=== PATIENT | male | born 1970 | race Caucasian/White ===

== ENCOUNTER 2021-02-22 15:25 | Outpatient (CLI) | payer BC ==
[2021-04-13] MEDS ORDERED: GABA100C PO (08:00)
[2021-04-13] MEDS ORDERED: MELA10TA PO (08:00)
[2021-04-13] MEDS ORDERED: IBUP-1222 PO (08:00)
== END 2021-02-22 23:59 | disposition home or self-care (01) ==
LOC: CFH 15:25
PROVIDERS: ATTEND Physician Assistant Medical
DX: K40.90 Unilateral inguinal hernia, without obstruction or gangrene, not specified as recurrent (principal)
CPT/HCPCS: 76857

== ENCOUNTER 2021-04-16 08:30 | Day surgery (SDC) | payer BC ==
[2021-04-13 08:27] LABS: BASOPHILS % (AUTO) 1 % (0-1); EOSINOPHILS % (AUTO) 1 % (1-7); LYMPHOCYTES % (AUTO) 16 % (22-44); MEAN CORPUSCULAR HEMOGLOBIN 28.9 pg (27.5-34.5); MEAN CORPUSCULAR HGB CONC 33.8 g/dL (33.2-36.2); MEAN PLATELET VOLUME 6.7 fL (7.4-10.4); MONOCYTES % (AUTO) 8 % (2-9); NEUTROPHILS % (AUTO) 74 % (42-75); PLATELET COUNT 547 x10^3/uL (130-400); RED BLOOD COUNT 5.06 x10^6/uL (4.38-5.82); RED CELL DISTRIBUTION WIDTH 13.4 % (9.4-14.8)
[2021-04-13 08:35] LABS: ANION GAP 7 mmol/L (5-15); CALCIUM 9.9 mg/dL (8.5-10.1); CHLORIDE 107 mmol/L (98-107); CREATININE 0.94 mg/dL (0.7-1.3)
[~2021-04-16] VITALS: Ht 182.9 cm; Wt 93.9 kg
[~2021-04-16 08:30] MED LIST: GABA100C PO; IBUP-1222 PO; MELA10TA PO
[2021-04-16] MEDS ORDERED: CHLORHEXIDINE 15 ML UDC ONE (09:19)
[2021-04-16] MEDS ORDERED: FENTANYL PF 100 MCG/2ML IV PRN (09:30)
[2021-04-16] MEDS ORDERED: HALOPERIDOL 5 MG/ML IV PRN (09:30)
[2021-04-16] MEDS ORDERED: LABETALOL 5MG/ML, 20ML IV PRN (09:30)
[2021-04-16] MEDS ORDERED: OXYcodone 5 MG/5 ML ORAL.SOL UDC PO PRN (09:30)
[2021-04-16] MEDS ORDERED: LACTATED RINGERS 1,000 ML IV SCH (09:30)
[2021-04-16] MEDS ORDERED: DIPHENHYDRAMINE 50 MG/ML, 1ML IVPush PRN (09:30)
[2021-04-16] MEDS ORDERED: MEPERIDINE/PF 25MG/0.5ML IVPush PRN (09:30)
[2021-04-16] MEDS ORDERED: HYDROmorphone 1 MG/ML, 1ML INJ IVPush PRN (09:30)
[2021-04-16] MEDS ORDERED: CHLORHEXIDINE 15 ML UDC PO ONE (09:30)
[2021-04-16] MEDS ORDERED: hydrALAzine 20 MG/ML, 1ML IV PRN (09:30)
[2021-04-16] MEDS ORDERED: ACETAMINOPHEN 325 MG TABLET PO PRN (09:30)
[2021-04-16] MEDS ORDERED: PROMETHAZINE 25 MG/ML, 1ML IVPush PRN (09:30)
[2021-04-16] MEDS ORDERED: FENTANYL PF 250 MCG/5ML ONE (09:34)
[2021-04-16] MEDS ORDERED: MIDAZOLAM 1 MG/ML, 2ML ONE (09:34)
[2021-04-16 09:44] VITALS: BP 126/69
[2021-04-16] MEDS ORDERED: BUPIVACAINE/PF 0.5% ONE ×2 (09:53→09:58)
[2021-04-16] MEDS ORDERED: EPINEPHRINE 1 MG/ML, 1ML ONE (09:53)
[2021-04-16] MEDS ORDERED: OXYC5TAB2 PO (10:35)
[2021-04-16] MEDS ORDERED: HYDROmorphone 1 MG/ML, 1ML INJ ONE (11:34)
[2021-04-16] MEDS ORDERED: CEFAZOLIN 1,000 MG ONE (12:11)
[2021-04-16] MEDS ORDERED: SUCCINYLCHOLINE 20 MG/ML, 10ML ONE (12:11)
[2021-04-16] MEDS ORDERED: GLYCOPYRROLATE 0.2MG/1ML, 5ML ONE (12:11)
[2021-04-16] MEDS ORDERED: DEXAMETHASONE 4 MG/ML, 1ML ONE (12:11)
[2021-04-16] MEDS ORDERED: ROCURONIUM 10MG/ML,5ML ONE (12:11)
[2021-04-16] MEDS ORDERED: ONDANSETRON 2MG/ML, 2ML ONE (12:11)
[2021-04-16] MEDS ORDERED: NEOSTIGMINE 1 MG/ML, 10ML ONE (12:11)
[2021-04-16] MEDS ORDERED: PROPOFOL 10 MG/ML, 20ML ONE (12:11)
== END 2021-04-16 16:41 | disposition home or self-care (01) ==
LOC: OUT 08:30 → EDSTATUS 11:00 → OUT 16:41
PROVIDERS: ATTEND Surgery
DX: K40.20 Bilateral inguinal hernia, without obstruction or gangrene, not specified as recurrent (principal); D17.6 Benign lipomatous neoplasm of spermatic cord; F12.90 Cannabis use, unspecified, uncomplicated; F17.210 Nicotine dependence, cigarettes, uncomplicated; Z88.8 Allergy status to other drugs, medicaments and biological substances; Z91.030 Bee allergy status; Z79.899 Other long term (current) drug therapy
CPT/HCPCS: 36415; 49650; 80048; 85025; C1781; J0171; J0330; J0690; J1100; J1170; J2250; J2405; J2704; J2710; J3010; J7120; S2900

== ENCOUNTER 2021-04-29 08:12 | Outpatient (CLI) | payer BC ==
[~2021-04-29 08:12] MED LIST changes: +OXYC5TAB2 PO
== END 2021-04-29 23:59 | disposition home or self-care (01) ==
LOC: RAD 08:12
PROVIDERS: ATTEND Internal Medicine
DX: Z02.9 Encounter for administrative examinations, unspecified (principal)

== ENCOUNTER 2021-05-05 12:06 | Day surgery (SDC) | payer BC ==
[~2021-05-05] VITALS: Ht 182.9 cm; Wt 82.0 kg
[2021-05-05] MEDS ORDERED: SODIUM CHLORIDE 0.9% 1,000 ML IV SCH (13:00)
[2021-05-05] MEDS ORDERED: TRAM50TA2 PO (13:04)
[2021-05-05] MEDS ORDERED: FENTANYL PF 100 MCG/2ML ONE (14:36)
[2021-05-05] MEDS ORDERED: MIDAZOLAM 1 MG/ML, 5ML ONE (14:36)
[2021-05-05] MEDS ORDERED: FLUMAZENIL 0.1 MG/1 ML, 5ML ONE (14:36)
[2021-05-05] MEDS ORDERED: NALOXONE 1 MG/ML, 2ML ONE (14:36)
[2021-05-05] MEDS ORDERED: GADOTERATE 10 MMOL/20ML SYR ONE (16:10)
[2021-05-05] MEDS ORDERED: OMNIPAQUE 350 MG/ML, 100ML BOTTLE ONE (16:54)
== END 2021-05-05 17:42 | disposition home or self-care (01) ==
LOC: OUT 12:06 → EDSTATUS 14:00 → OUT 17:42
PROVIDERS: ATTEND Internal Medicine
DX: R10.32 Left lower quadrant pain (principal); E27.49 Other adrenocortical insufficiency; K76.9 Liver disease, unspecified; J98.11 Atelectasis; M48.07 Spinal stenosis, lumbosacral region; F17.210 Nicotine dependence, cigarettes, uncomplicated; Z79.899 Other long term (current) drug therapy
CPT/HCPCS: 73720; 74177; 99156; 99157; A9575; J2250; J3010; J7030; Q9967; J2310

== ENCOUNTER 2021-05-07 07:50 | Day surgery (SDC) | payer BC ==
[~2021-05-07] VITALS: Ht 182.9 cm; Wt 84.9 kg
[~2021-05-07 07:50] MED LIST changes: +TRAM50TA2 PO
[2021-05-07 08:35] VITALS: BP 118/77
[2021-05-07] MEDS ORDERED: FENTANYL PF 100 MCG/2ML ONE ×2 (09:59→10:00)
[2021-05-07] MEDS ORDERED: MIDAZOLAM 1 MG/ML, 5ML ONE (10:00)
[2021-05-07] MEDS ORDERED: NALOXONE 1 MG/ML, 2ML ONE (10:00)
[2021-05-07] MEDS ORDERED: FLUMAZENIL 0.1 MG/1 ML, 5ML ONE (10:00)
[2021-05-07] MEDS ORDERED: OMNIPAQUE 350 MG/ML, 100ML BOTTLE ONE (10:11)
== END 2021-05-07 11:30 | disposition home or self-care (01) ==
LOC: RAD 07:50 → EDSTATUS 09:30 → RAD 11:30
PROVIDERS: ATTEND Internal Medicine
DX: R19.09 Other intra-abdominal and pelvic swelling, mass and lump (principal); C79.89 Secondary malignant neoplasm of other specified sites; R59.0 Localized enlarged lymph nodes; M48.07 Spinal stenosis, lumbosacral region; F17.210 Nicotine dependence, cigarettes, uncomplicated; Z79.899 Other long term (current) drug therapy
CPT/HCPCS: 49180; 71260; 77012; 88305; 88341; 88342; 99156; J2250; J3010; Q9967; J2310